=== PATIENT | female | born 1945 | race Caucasian/White ===

== ENCOUNTER 2018-08-16 08:04 | Day surgery (SDC) | payer MEDICARE, SELFPAY ==
--- NOTE | 2018-08-14 20:55 | W.PIPPEYE ---
History of Present Illness Chief Complaint: Progressive decreased vision, left eye Narrative: The patient is a 72-year-old lady with history of progressive decreased vision in both eyes at distance. She has significant difficulty reading road signs and also has trouble with glare from bright lights. On examination she was noted to have moderate bilateral nuclear and cortical cataracts with corrected visual acuity of 20/50 in each eye. The option of cataract surgery was offered to the patient and she felt she was symptomatic enough that she wished to proceed. FOR[facility]LY [facility] Medical History Cortical cataract of left eye (Acute) Nuclear sclerotic cataract of left eye (Acute) Meds Home Medications Medication Instructions Recorded Confirmed Type amlodipine 5 mg PO DAILY 08/09/18 08/09/18 History aspirin [Aspir-81] 81 mg PO DAILY 08/09/18 08/09/18 History atorvastatin 20 mg PO DAILY 08/09/18 08/09/18 History carvedilol [Coreg] 25 mg PO BID 08/09/18 08/09/18 History cholecalciferol (vitamin D3) 1,000 unit PO DAILY 08/09/18 08/09/18 History [Vitamin D3] levothyroxine 125 mcg PO DAILY 08/09/18 08/09/18 History vit C-vit S-ujhyye-ogpy-lutein 2 tab PO DAILY 08/09/18 08/09/18 History [PreserVision Lutein] Allergies Allergy/AdvReac Type Severity Reaction Status Date / Time shellfish derived Allergy Verified 08/13/18 14:45 ivp dye Allergy Uncoded 08/13/18 14:45 Exam OCULAR EXAM:: Visual acuity at distance: Corrected 20/50 right eye, 20/50 left eye Pupils: Pupils equal, round, and reactive without afferent pupillary defect IOP: 16 OD, 14 OS Extraocular Motility: Normal Pertinent Slit Lamp Findings: Significant for pupils dilating to 5 mm OU. 2+ nuclear with 2+ cortical cataract in both eyes. Dilated Funduscopic Examination: Disc cupping is 0.3 OU with good color. The optic nerves have good perfusion and normal color. The retinal vasculature is normal without significant tortuosity or abnormality. The maculas are normal in appearance with normal contour and foveal reflex appropriate for age. The peripheral retina and vitreous are normal. BRIGHTNESS ACUITY TESTING (BAT):: Off left eye 20/50 Low: 20/40 Medium: 20/40 High: 20/40 Assessment and Plan (1) Nuclear sclerotic cataract of left eye: Current visit: No Status: Acute Assessment: Visually significant cataract, left eye. Plan: Cataract extraction with intraocular lens implantation, left eye (2) Cortical cataract of left eye: Current visit: No Status: Acute Assessment: Visually significant cataract, left eye. Plan: Cataract extraction with intraocular lens implantation, left eye Note: NOTE:: The details of the planned surgery, including the risks, indications,limitations,expectations,outcome and possible complications were explained to the patient. The patient understands the complications including, but not limited to: infection, hemorrhage, posterior dislocation of the lens or nuclear fragments which may require the intervention of a vitreoretinal surgeon, possible loss of the eye, or from anesthetic complications. The patient has been made aware of the option of not having surgery, that vision following surgery may not be equal to that prior to surgery, and that the planned surgery may not achieve the intended results. Following this discussion, which the patient appeared to understand, the patient wishes to proceed with cataract surgery with lens implantation of the affected eye to improve and maximize vision.
--- NOTE | 2018-08-15 12:41 | POEE_ITS ---
History of Present Illness Chief Complaint: Progressive decreased vision, left eye Narrative: The patient is a 72-year-old lady with history of macular degeneration in both eyes, left eye worse than right who presented with complaints of progressive decreased vision in both eyes. On examination she was noted to have moderate bilateral nuclear cataracts with cortical cataract of the left eye as well. She has macular changes consistent with macular degeneration. The option of cataract surgery was offered to the patient, and she wished to proceed. She was made aware that postoperative visual acuity will likely be limited by the presence of her pre-existing macular degeneration. NOTE: The Chief Complaint, HPI, Past Medical History, Past Surgical History, Family History, Social History, Medications, and complete Ophthalmic Exam with detailed Assessment and Plan have already been documented in the patient's outpatient ophthalmic record and are not covered again in detail here. PFSH Medical History Cortical cataract of left eye (Acute) Nuclear sclerotic cataract of left eye (Acute) Intermediate stage nonexudative age-related macular degeneration of left eye ( Chronic) Meds Home Medications Medication Instructions Recorded Confirmed Type amlodipine 5 mg PO DAILY 08/09/18 08/09/18 History aspirin [Aspir-81] 81 mg PO DAILY 08/09/18 08/09/18 History atorvastatin 20 mg PO DAILY 08/09/18 08/09/18 History carvedilol [Coreg] 25 mg PO BID 08/09/18 08/09/18 History cholecalciferol (vitamin D3) 1,000 unit PO DAILY 08/09/18 08/09/18 History [Vitamin D3] levothyroxine 125 mcg PO DAILY 08/09/18 08/09/18 History vit C-vit M-fzxpda-lmqu-lutein 2 tab PO DAILY 08/09/18 08/09/18 History [PreserVision Lutein] Allergies Allergy/AdvReac Type Severity Reaction Status Date / Time shellfish derived Allergy Verified 08/13/18 14:45 ivp dye Allergy Uncoded 08/13/18 14:45 Exam OCULAR EXAM:: Visual acuity at distance: Corrected to 20/25 OD, 20/100 OS Pupils: Pupils equal, round, and reactive without afferent pupillary defect IOP: 14 OD 13 OS Extraocular Motility: Normal Pertinent Slit Lamp Findings: Significant for pupils dilating to 7 mm OU. 1+ nuclear cataract OD. 2+ nuclear with 2+ cortical cataract OS. Dilated Funduscopic Examination: Disc cupping is 0.3 OU with normal vessels. There are soft drusen in both macula is with pigmentary changes. There is patchy atrophy in the left macula. Peripheral retina and vitreous is normal. BRIGHTNESS ACUITY TESTING (BAT):: Off left eye 20/100 Low: 20/200 Medium: 20/200 High: 20/400 Assessment and Plan (1) Cortical cataract of left eye: Current visit: No Status: Acute Assessment: Visually significant cataract, left eye. Plan: Cataract extraction with intraocular lens implantation, left eye (2) Nuclear sclerotic cataract of left eye: Current visit: No Status: Acute Assessment: Visually significant cataract, left eye. 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 Plan: A discussion was undertaken with the patient to inform her that her postoperative visual acuity will likely be limited by the presence of her pre- existing macular degeneration. Currently, no intervention is indicated or available for her macular degeneration. Note: NOTE:: The details of the planned surgery, including the risks, indications, limitations,expectations,outcome and possible complications were explained to the patient. The patient understands the complications including, but not limited to: infection, hemorrhage, posterior dislocation of the lens or nuclear fragments which may require the intervention of a vitreoretinal surgeon, possible loss of the eye, or from anesthetic complications. The patient has been made aware of the option of not having surgery, that vision following surgery may not be equal to that prior to surgery, and that the planned surgery may not achieve the intended results. Following this discussion, which the patient appeared to understand, the patient wishes to proceed with cataract surgery with lens implantation of the affected eye to improve and maximize vision.
[2018-08-16 08:27] VITALS: BP 157/92; PULSE 79; RESP 16; TEMP 36.4; O2SAT 99
[2018-08-16] MEDS: Lidocaine 2% Jelly 6 ML SYR (09:45)
[2018-08-16] MEDS: Balanced Salt Soln.-PLUS 500 ML BAG (09:48)
[2018-08-16] MEDS: Povidone-Iodine Ophth 30 ML BTL (09:48)
--- NOTE | 2018-08-16 10:09 | PDOC.DSDIS_ITS ---
Discharge Plan Discharge Details Reason For Visit: CATARACT OS Attending Provider: Christian Orosco Primary Care Provider: Giovanni Quinn [place] Meds and New Rx's Prescriptions: No Action carvedilol [Coreg] 25 mg Tablet 25 mg PO BID RF: 0 atorvastatin 20 mg Tablet 20 mg PO DAILY RF: 0 amlodipine 5 mg Tablet 5 mg PO DAILY RF: 0 aspirin [Aspir-81] 81 mg Tablet,Delayed Release (Dr/Ec) 81 mg PO DAILY RF: 0 cholecalciferol (vitamin D3) [Vitamin D3] 1,000 unit Capsule 1,000 unit PO DAILY RF: 0 vit C-vit U-xjubht-uxym-lutein [PreserVision Lutein] 226 mg-200 unit -5 mg- 0.8 mg Capsule 2 tab PO DAILY RF: 0 levothyroxine 125 mcg Capsule 125 mcg PO DAILY RF: 0 Discharge Instructions Stand Alone Forms: Post-op Topical Cataract, Aki Mendez (DSU) DS: Diagnosis Discharge Diagnosis (1) Cortical cataract of left eye: Status: Resolved (2) Nuclear sclerotic cataract of left eye: Status: Resolved (3) Intermediate stage nonexudative age-related macular degeneration of left eye : Status: Chronic
--- NOTE | 2018-08-16 10:09 | W.PM.OP ---
Date of service: 08/16/18 Time of Service: 10:09 Operative Note PRE-OP DIAGNOSIS: Cataract, left eye POST-OP DIAGNOSIS: same PROCEDURE: Cataract extraction using phacoemulsification with intraocular lens implant, left eye SURGEON: Christian Orosco ANESTHESIA: MAC and local (sub-tenon's anesthetic infiltration) PATHOLOGY: none sent COMPLICATIONS: None Patient was transported to: same day Patient's condition: stable Implants: Ganesh and Ganesh Vision / [employer] Tecnis ZCB00 Indications: Progressive decreased vision due to cataract, left eye Procedure Description: CATARACT SURGERY OPERATIVE REPORT PREOPERATIVE DIAGNOSIS: Nuclear/cortical cataract, left eye, symptomatic POSTOPERATIVE DIAGNOSIS: Same OPERATION: Cataract extraction using phacoemulsification with posterior chamber intraocular lens implant, left eye. IOL: IOL Box Office Attendant/Model: J[employer]J Vision / EDEN Tecnis ZCB00 IOL Power: + 18.50 diopters IOL Serial Number: [id number] Optic Diameter: 6.0mm Haptic/Overall Diameter: 13.0mm PHACO INFO: [employer] Vision System with OZil and Active Fluidics Cumulative Dispersed Energy (CDE): 8.1 seconds SURGEON: Christian Orosco MD, AMOS ANESTHESIA: Monitored Anesthesia Care (MAC), with local sub-tenon's anesthetic infiltration COMPLICATIONS: None SPECIMENS: None INDICATIONS FOR PROCEDURE: The patient is a 72-year-old lady with history of atrophic ARMD of the left eye. She has developed nuclear and cortical cataract. The option of cataract surgery was offered to the patient in order to maximize her level of visual acuity. She understands that postoperative visual acuity will be limited by the presence of her pre-existing maculopathy. PROCEDURE: The correct surgical eye was identified and marked as the left eye and the pupil was dilated in the preoperative area using mydriatics, cycloplegics, and NSAIDS (except in aspirin allergic patients). The dilated pupil size was 8.0 mm. Oral sedation was administered in the form of an Imprimis MKO Melt (midazolam 3mg/ketamine 25mg/ondansetron 2mg). The patient was brought to the operating room where cardiopulmonary monitoring was instituted and surgical time-out was performed, confirming the correct operative eye and IOL power. Topical anesthesia was administered and ophthalmic povidone-iodine 5% was instilled into the conjunctival fornices. Lidocaine gel was applied to the cornea and the rosangela-ocular area was prepped with Betadine 10% solution and draped in the usual sterile fashion for intraocular surgery. Steri-strips were used to cover the lashes and lid margins and an adhesive eye drape was placed. Care was taken to isolate the lashes and lid margins under the Steri-strips and adhesive eye drape. A lid speculum was placed between the lids of the operative eye and the Jackie-Los operating microscope was maneuvered into position. Dc scissors were then used to make a conjunctival buttonhole approximately 6mm posterior to the limbus in the inferonasal quadrant. Blunt dissection was carried out to expose bare sclera, and a blunt-tipped sub-tenon?s anesthesia cannula was introduced and passed posteriorly along the globe where non-preserved plain lidocaine was injected into posterior sub-Tenon?s space. A sideport knife was used to make a paracentesis port at the 12:00 postion and the anterior chamber was filled with Healon GV. A 2.4mm keratome knife was used to create a half-thickness groove at the limbus and then to construct a three-plane near-clear corneal tunnel extending 2.0mm into clear cornea at the 3:00 position. A flap was raised on the anterior capsule and capsulorhexis forceps were used to complete a continuous curvilinear capsulorhexis of 5.5 mm. Balanced salt solution was then used to perform cortical cleaving hydrodissection and nuclear hydrodelineation until the lens could be freely rotated within the capsular bag. The lens nucleus was then disassembled and removed within the capsular bag and iris plane using phacoemulsification. Residual cortical material was removed using the 45-degree angled silicone I/A tip with 0.3mm port. The posterior capsule was carefully polished to remove as much residual lens epithelial cells as safely possible. The capsular bag was then inflated and the anterior chamber deepened with viscoelastic. The lens implant described above was inserted into the capsular bag using the EDEN [place] Injector. A Kuglen hook was used to dial the IOL into position. Residual viscoelastic was then removed first from posterior to the IOL, then from the anterior chamber using the I/A handpiece. The lens implant was noted to center nicely within the capsular bag. The incisions were stromally hydrated, and the anterior chamber was reformed using BSS. Then 0.4cc of moxifloxacin 1.5mg/ml were injected into the capsular bag and anterior chamber. The incisions were checked with a Weck spear and found to be secure. Several drops of ophthalmic povidone-iodine 5% were then applied to the eye followed by two drops of Imprimis combination moxifloxacin/dexamethasone solution. The drapes were removed and a clear plastic protective eye shield was placed over the eye. The patient was then returned to Same Day Surgery in stable condition.
--- NOTE | 2018-08-16 10:12 | ROE_ITS ---
Date of service: 08/16/18 Time of Service: 10:09 Operative Note PRE-OP DIAGNOSIS: Cataract, left eye POST-OP DIAGNOSIS: same PROCEDURE: Cataract extraction using phacoemulsification with intraocular lens implant, left eye SURGEON: Christian Orosco ANESTHESIA: MAC and local (sub-tenon's anesthetic infiltration) PATHOLOGY: none sent COMPLICATIONS: None Patient was transported to: same day Patient's condition: stable Implants: Ganesh and Ganesh Vision / [employer] Tecnis ZCB00 Indications: Progressive decreased vision due to cataract, left eye Procedure Description: CATARACT SURGERY OPERATIVE REPORT PREOPERATIVE DIAGNOSIS: Nuclear/cortical cataract, left eye, symptomatic POSTOPERATIVE DIAGNOSIS: Same OPERATION: Cataract extraction using phacoemulsification with posterior chamber intraocular lens implant, left eye. IOL: IOL [employer] Forms Developer/Model: J&J Vision / EDEN Tecnis ZCB00 IOL Power: + 18.50 diopters IOL Serial Number: [id number] Optic Diameter: 6.0mm Haptic/Overall Diameter: 13.0mm PHACO INFO: [employer] Vision System with OZil and Active Fluidics Cumulative Dispersed Energy (CDE): 8.1 seconds SURGEON: Christian Orosco MD, AMOS ANESTHESIA: Monitored Anesthesia Care (MAC), with local sub-tenon's anesthetic infiltration COMPLICATIONS: None SPECIMENS: None INDICATIONS FOR PROCEDURE: The patient is a 72-year-old lady with history of atrophic ARMD of the left eye. She has developed nuclear and cortical cataract. The option of cataract surgery was offered to the patient in order to maximize her level of visual acuity. She understands that postoperative visual acuity will be limited by the presence of her pre-existing maculopathy. PROCEDURE: The correct surgical eye was identified and marked as the left eye and the pupil was dilated in the preoperative area using mydriatics, cycloplegics, and NSAIDS (except in aspirin allergic patients). The dilated pupil size was 8.0 mm. Oral sedation was administered in the form of an Imprimis MKO Melt (midazolam 3mg/ketamine 25mg/ondansetron 2mg). The patient was brought to the operating room where cardiopulmonary monitoring was instituted and surgical time-out was performed, confirming the correct operative eye and IOL power. Topical anesthesia was administered and ophthalmic povidone-iodine 5% was instilled into the conjunctival fornices. Lidocaine gel was applied to the cornea and the rosangela-ocular area was prepped with Betadine 10% solution and draped in the usual sterile fashion for intraocular surgery. Steri-strips were used to cover the lashes and lid margins and an adhesive eye drape was placed. Care was taken to isolate the lashes and lid margins under the Steri-strips and adhesive eye drape. A lid speculum was placed between the lids of the operative eye and the Jackie-Los operating microscope was maneuvered into position. Dc scissors were then used to make a conjunctival buttonhole approximately 6mm posterior to the limbus in the inferonasal quadrant. Blunt dissection was carried out to expose bare sclera, and a blunt-tipped sub-tenon? s anesthesia cannula was introduced and passed posteriorly along the globe where non-preserved plain lidocaine was injected into posterior sub-Tenon?s space. A sideport knife was used to make a paracentesis port at the 12:00 postion and the anterior chamber was filled with Healon GV. A 2.4mm keratome knife was used to create a half-thickness groove at the limbus and then to construct a three-plane near-clear corneal tunnel extending 2.0mm into clear cornea at the 3:00 position. A flap was raised on the anterior capsule and capsulorhexis forceps were used to complete a continuous curvilinear capsulorhexis of 5.5 mm. Balanced salt solution was then used to perform cortical cleaving hydrodissection and nuclear hydrodelineation until the lens could be freely rotated within the capsular bag. The lens nucleus was then disassembled and removed within the capsular bag and iris plane using phacoemulsification. Residual cortical material was removed using the 45-degree angled silicone I/A tip with 0.3mm port. The posterior capsule was carefully polished to remove as much residual lens epithelial cells as safely possible. The capsular bag was then inflated and the anterior chamber deepened with viscoelastic. The lens implant described above was inserted into the capsular bag using the EDEN [place] Injector. A Kuglen hook was used to dial the IOL into position. Residual viscoelastic was then removed first from posterior to the IOL, then from the anterior chamber using the I/A handpiece. The lens implant was noted to center nicely within the capsular bag. The incisions were stromally hydrated , and the anterior chamber was reformed using BSS. Then 0.4cc of moxifloxacin 1.5mg/ml were injected into the capsular bag and anterior chamber. The incisions were checked with a Weck spear and found to be secure. Several drops of ophthalmic povidone-iodine 5% were then applied to the eye followed by two drops of Imprimis combination moxifloxacin/dexamethasone solution. The drapes were removed and a clear plastic protective eye shield was placed over the eye. The patient was then returned to Same Day Surgery in stable condition.
[2018-08-16 10:30] VITALS: BP 113/74; PULSE 64; RESP 16; TEMP 36.6; O2SAT 97
== END 2018-08-16 10:45 | disposition home or self-care (01) ==
LOC: SUR 08:06
PROVIDERS: PCP Family Medicine; Visit Provider Ophthalmology
PROC: (CPT 66984; principal; 2018-08-16 10:00)
DX: H25.812 Combined forms of age-related cataract, left eye (principal)
CPT/HCPCS: 66984; V2632

== ENCOUNTER 2018-08-30 08:09 | Day surgery (SDC) | payer MEDICARE, SELFPAY ==
--- NOTE | 2018-08-29 12:15 | POEE_ITS ---
History of Present Illness Chief Complaint: Progressive decreased vision, right eye Narrative: The patient is a 72-year-old female with history of macular degeneration OU, left eye worse than right. She has progressive decreased vision at both distance and near. She was noted to have moderate bilateral nuclear and cortical cataracts, left eye worse than right. She underwent cataract surgery in the left eye on 08/16/2018. Postoperatively, her visual acuity has been limited by the presence of pre-existing maculopathy in the left eye. She now presents for cataract surgery in the right eye NOTE: The Chief Complaint, HPI, Past Medical History, Past Surgical History, Family History, Social History, Medications, and complete Ophthalmic Exam with detailed Assessment and Plan have already been documented in the patient's outpatient ophthalmic record and are not covered again in detail here. [facility] Medical History Nuclear sclerotic cataract of right eye (Acute) Age-related macular degeneration, dry, right eye (Chronic) Intermediate stage nonexudative age-related macular degeneration of left eye ( Chronic) Social History Smoking/Tobacco Use Status: Never Surgical History Status post cataract extraction and insertion of intraocular lens of left eye ( Resolved 08/16/18) Meds Home Medications Medication Instructions Recorded Confirmed Type amlodipine 5 mg PO DAILY 08/09/18 08/09/18 History aspirin [Aspir-81] 81 mg PO DAILY 08/09/18 08/09/18 History atorvastatin 20 mg PO DAILY 08/09/18 08/09/18 History carvedilol [Coreg] 25 mg PO BID 08/09/18 08/09/18 History cholecalciferol (vitamin D3) 1,000 unit PO DAILY 08/09/18 08/09/18 History [Vitamin D3] levothyroxine 125 mcg PO DAILY 08/09/18 08/09/18 History vit C-vit N-siktka-mvvu-lutein 2 tab PO DAILY 08/09/18 08/09/18 History [PreserVision Lutein] Allergies Allergy/AdvReac Type Severity Reaction Status Date / Time shellfish derived Allergy vomiting, Verified 08/16/18 08:24 ivp dye Allergy Uncoded 08/13/18 14:45 Exam OCULAR EXAM:: Visual acuity at distance: Corrected visual acuity is 20/30 OD, 20 /200 OS. Pupils: Pupils equal, round, and reactive without afferent pupillary defect IOP: 14 OD 14 OS Extraocular Motility: Normal Pertinent Slit Lamp Findings: Significant for a 1+ nuclear cataract OD. Well- positioned PCIOL OS with clear posterior capsule. Dilated Funduscopic Examination: Disc cupping is 0.3 OU with good color. There are soft drusen in both macula is with RPE changes. There are areas of patchy atrophy in the left macula. Peripheral retina and vitreous is normal. BRIGHTNESS ACUITY TESTING (BAT):: Off right eye 20/25 Low: 20/30 Medium: 20/30 High: 20/40 Assessment and Plan (1) Nuclear sclerotic cataract of right eye: Current visit: No Status: Acute Assessment: Visually significant cataract, right eye. Plan: Cataract extraction with intraocular lens implantation, right eyeNuclear cataract, right eye (2) Status post cataract extraction and insertion of intraocular lens of left eye: Current visit: No Status: Resolved Note: NOTE:: The details of the planned surgery, including the risks, indications, limitations,expectations,outcome and possible complications were explained to the patient. The patient understands the complications including, but not limited to: infection, hemorrhage, posterior dislocation of the lens or nuclear fragments which may require the intervention of a vitreoretinal surgeon, possible loss of the eye, or from anesthetic complications. The patient has been made aware of the option of not having surgery, that vision following surgery may not be equal to that prior to surgery, and that the planned surgery may not achieve the intended results. Following this discussion, which the patient appeared to understand, the patient wishes to proceed with cataract surgery with lens implantation of the affected eye to improve and maximize vision.
[2018-08-30 08:21] VITALS: BP 155/93; PULSE 70; RESP 16; TEMP 36.8; O2SAT 97
[2018-08-30] MEDS: Lidocaine 1% Pres-Free 5 ML VIAL (09:38)
[2018-08-30] MEDS: Balanced Salt Soln.-PLUS 500 ML BAG (09:41)
[2018-08-30] MEDS: Lidocaine 2% Jelly 6 ML SYR (09:43)
[2018-08-30] MEDS: Povidone-Iodine Ophth 30 ML BTL (09:44)
--- NOTE | 2018-08-30 10:07 | W.PM.DSUDISC ---
Discharge Plan Discharge Details Attending Provider: Christian Orosco Primary Care Provider: Giovanni Quinn [place] Meds and New Rx's Prescriptions: No Action carvedilol [Coreg] 25 mg Tablet 25 mg PO BID RF: 0 atorvastatin 20 mg Tablet 20 mg PO DAILY RF: 0 amlodipine 5 mg Tablet 5 mg PO DAILY RF: 0 aspirin [Aspir-81] 81 mg Tablet,Delayed Release (Dr/Ec) 81 mg PO DAILY RF: 0 cholecalciferol (vitamin D3) [Vitamin D3] 1,000 unit Capsule 1,000 unit PO DAILY RF: 0 vit C-vit Z-kywest-opqi-lutein [PreserVision Lutein] 226 mg-200 unit -5 mg-0.8 mg Capsule 2 tab PO DAILY RF: 0 levothyroxine 125 mcg Capsule 125 mcg PO DAILY RF: 0 Discharge Instructions Stand Alone Forms: Post-op Topical Cataract, Aki Mendez (DSU) DS: Diagnosis Discharge Diagnosis (1) Nuclear sclerotic cataract of right eye: Status: Resolved (2) Status post cataract extraction and insertion of intraocular lens of left eye: Status: Chronic (3) Status post cataract extraction and insertion of intraocular lens of right eye: Status: Acute
--- NOTE | 2018-08-30 10:09 | W.PM.OP ---
Date of service: 08/30/18 Time of Service: 10:09 Operative Note DATE OF PROCEDURE: 08/30/18 PRE-OP DIAGNOSIS: Cataract, right eye POST-OP DIAGNOSIS: same SURGEON: Christian Orosco ANESTHESIA: MAC and local (sub-tenon's anesthetic infiltration) PATHOLOGY: none sent COMPLICATIONS: None Patient was transported to: same day Patient's condition: stable Implants: Ganesh [employer] Ganesh [employer] / [employer] Tecnis ZCB00 Indications: Progressive decreased vision due to cataract, right eye Procedure Description: CATARACT SURGERY OPERATIVE REPORT PREOPERATIVE DIAGNOSIS: Nuclear cataract, right eye POSTOPERATIVE DIAGNOSIS: Same OPERATION: Cataract extraction using phacoemulsification with posterior chamber intraocular lens implant, right eye. IOL: IOL Guide Plant/Model: [employer] Vision / EDEN Tecnis ZCB00 IOL Power: + 18.50 diopters IOL Serial Number: [id number] Optic Diameter: 6.0mm Haptic/Overall Diameter: 13.0mm PHACO INFO: Don [employer] Vision System with OZil and Active Fluidics Cumulative Dispersed Energy (CDE): 8.69 seconds SURGEON: Christian Orosco MD, AMOS ANESTHESIA: Monitored Anesthesia Care (MAC), with local sub-tenon's anesthetic infiltration COMPLICATIONS: None SPECIMENS: None INDICATIONS FOR PROCEDURE: The patient is a 72-year-old lady with history of macular degeneration, left eye worse than right who has developed significant bilateral nuclear cataracts. She is Ardie undergone cataract surgery in her left eye on 08/16/2018. Postoperatively she is doing well, except that her postoperative visual acuity is limited limited by the presence of her pre-existing macular degeneration. She now presents for cataract surgery in the right eye. PROCEDURE: The correct surgical eye was identified and marked as the right eye and the pupil was dilated in the preoperative area using mydriatics, cycloplegics, and NSAIDS (except in aspirin allergic patients). The dilated pupil size was 8.0 mm. Oral sedation was administered in the form of an Imprimis MKO Melt (midazolam 3mg/ketamine 25mg/ondansetron 2mg). The patient was brought to the operating room where cardiopulmonary monitoring was instituted and surgical time-out was performed, confirming the correct operative eye and IOL power. Topical anesthesia was administered and ophthalmic povidone-iodine 5% was instilled into the conjunctival fornices. Lidocaine gel was applied to the cornea and the rosangela-ocular area was prepped with Betadine 10% solution and draped in the usual sterile fashion for intraocular surgery. Steri-strips were used to cover the lashes and lid margins and an adhesive eye drape was placed. Care was taken to isolate the lashes and lid margins under the Steri-strips and adhesive eye drape. A lid speculum was placed between the lids of the operative eye and the Jackie-Los operating microscope was maneuvered into position. Dc scissors were then used to make a conjunctival buttonhole approximately 6mm posterior to the limbus in the inferonasal quadrant. Blunt dissection was carried out to expose bare sclera, and a blunt-tipped sub-tenon?s anesthesia cannula was introduced and passed posteriorly along the globe where non-preserved plain lidocaine was injected into posterior sub-Tenon?s space. A sideport knife was used to make a paracentesis port at the 7:00 postion and the anterior chamber was filled with Healon GV. A 2.4mm keratome knife was used to create a half-thickness groove at the limbus and then to construct a three-plane near-clear corneal tunnel extending 2.0mm into clear cornea at the 10:00 position. A flap was raised on the anterior capsule and capsulorhexis forceps were used to complete a continuous curvilinear capsulorhexis of 5.5 mm. Balanced salt solution was then used to perform cortical cleaving hydrodissection and nuclear hydrodelineation until the lens could be freely rotated within the capsular bag. The lens nucleus was then disassembled and removed within the capsular bag and iris plane using phacoemulsification. Residual cortical material was removed using the 45-degree angled silicone I/A tip with 0.3mm port. The posterior capsule was carefully polished to remove as much residual lens epithelial cells as safely possible. The capsular bag was then inflated and the anterior chamber deepened with viscoelastic. The lens implant described above was inserted into the capsular bag using the EDEN [place] Injector. A Kuglen hook was used to dial the IOL into position. Residual viscoelastic was then removed first from posterior to the IOL, then from the anterior chamber using the I/A handpiece. The lens implant was noted to center nicely within the capsular bag. The incisions were stromally hydrated, and the anterior chamber was reformed using BSS. Then 0.4cc of moxifloxacin 1.5mg/ml were injected into the capsular bag and anterior chamber. The incisions were checked with a Weck spear and found to be secure. Several drops of ophthalmic povidone-iodine 5% were then applied to the eye followed by two drops of Imprimis combination moxifloxacin/dexamethasone solution. The drapes were removed and a clear plastic protective eye shield was placed over the eye. The patient was then returned to [facility] Day Surgery in stable condition.
--- NOTE | 2018-08-30 10:12 | ROE_ITS ---
Date of service: 08/30/18 Time of Service: 10:09 Operative Note DATE OF PROCEDURE: 08/30/18 PRE-OP DIAGNOSIS: Cataract, right eye POST-OP DIAGNOSIS: same SURGEON: Christian Orosco ANESTHESIA: MAC and local (sub-tenon's anesthetic infiltration) PATHOLOGY: none sent COMPLICATIONS: None Patient was transported to: same day Patient's condition: stable Implants: Ganesh and Ganes[employer] Vision / [employer] Tecnis ZCB00 Indications: Progressive decreased vision due to cataract, right eye Procedure Description: CATARACT SURGERY OPERATIVE REPORT PREOPERATIVE DIAGNOSIS: Nuclear cataract, right eye POSTOPERATIVE DIAGNOSIS: Same OPERATION: Cataract extraction using phacoemulsification with posterior chamber intraocular lens implant, right eye. IOL: IOL Cost Accountant/Model: [employer] Vision / [employer]EN [employer]ecnis ZCB00 IOL Power: + 18.50 diopters IOL Serial Number: [id number] Optic Diameter: 6.0mm Haptic/Overall Diameter: 13.0mm PHACO INFO: Don [employer] Vision System with OZil and Active Fluidics Cumulative Dispersed Energy (CDE): 8.69 seconds SURGEON: Christian Orosco MD, AMOS ANESTHESIA: Monitored Anesthesia Care (MAC), with local sub-tenon's anesthetic infiltration COMPLICATIONS: None SPECIMENS: None INDICATIONS FOR PROCEDURE: The patient is a 72-year-old lady with history of macular degeneration, left eye worse than right who has developed significant bilateral nuclear cataracts. She is Ardie undergone cataract surgery in her left eye on 08/16/2018. Postoperatively she is doing well, except that her postoperative visual acuity is limited limited by the presence of her pre-existing macular degeneration. She now presents for cataract surgery in the right eye. PROCEDURE: The correct surgical eye was identified and marked as the right eye and the pupil was dilated in the preoperative area using mydriatics, cycloplegics, and NSAIDS (except in aspirin allergic patients). The dilated pupil size was 8.0 mm. Oral sedation was administered in the form of an Imprimis MKO Melt (midazolam 3mg/ketamine 25mg/ondansetron 2mg). The patient was brought to the operating room where cardiopulmonary monitoring was instituted and surgical time-out was performed, confirming the correct operative eye and IOL power. Topical anesthesia was administered and ophthalmic povidone-iodine 5% was instilled into the conjunctival fornices. Lidocaine gel was applied to the cornea and the rosangela-ocular area was prepped with Betadine 10% solution and draped in the usual sterile fashion for intraocular surgery. Steri-strips were used to cover the lashes and lid margins and an adhesive eye drape was placed. Care was taken to isolate the lashes and lid margins under the Steri-strips and adhesive eye drape. A lid speculum was placed between the lids of the operative eye and the Jackie-Los operating microscope was maneuvered into position. Dc scissors were then used to make a conjunctival buttonhole approximately 6mm posterior to the limbus in the inferonasal quadrant. Blunt dissection was carried out to expose bare sclera, and a blunt-tipped sub-tenon? s anesthesia cannula was introduced and passed posteriorly along the globe where non-preserved plain lidocaine was injected into posterior sub-Tenon?s space. A sideport knife was used to make a paracentesis port at the 7:00 postion and the anterior chamber was filled with Healon GV. A 2.4mm keratome knife was used to create a half-thickness groove at the limbus and then to construct a three-plane near-clear corneal tunnel extending 2.0mm into clear cornea at the 10:00 position. A flap was raised on the anterior capsule and capsulorhexis forceps were used to complete a continuous curvilinear capsulorhexis of 5.5 mm. Balanced salt solution was then used to perform cortical cleaving hydrodissection and nuclear hydrodelineation until the lens could be freely rotated within the capsular bag. The lens nucleus was then disassembled and removed within the capsular bag and iris plane using phacoemulsification. Residual cortical material was removed using the 45-degree angled silicone I/A tip with 0.3mm port. The posterior capsule was carefully polished to remove as much residual lens epithelial cells as safely possible. The capsular bag was then inflated and the anterior chamber deepened with viscoelastic. The lens implant described above was inserted into the capsular bag using the EDEN [place] Injector. A Kuglen hook was used to dial the IOL into position. Residual viscoelastic was then removed first from posterior to the IOL, then from the anterior chamber using the I/A handpiece. The lens implant was noted to center nicely within the capsular bag. The incisions were stromally hydrated , and the anterior chamber was reformed using BSS. Then 0.4cc of moxifloxacin 1.5mg/ml were injected into the capsular bag and anterior chamber. The incisions were checked with a Weck spear and found to be secure. Several drops of ophthalmic povidone-iodine 5% were then applied to the eye followed by two drops of Imprimis combination moxifloxacin/dexamethasone solution. The drapes were removed and a clear plastic protective eye shield was placed over the eye. The patient was then returned to Same Day Surgery in stable condition.
[2018-08-30 10:40] VITALS: BP 130/76; PULSE 80; RESP 16; TEMP 36.6; O2SAT 95
== END 2018-08-30 10:45 | disposition home or self-care (01) ==
LOC: SUR 08:10
PROVIDERS: PCP Family Medicine; Visit Provider Ophthalmology
PROC: (CPT 66984; principal; 2018-08-30 10:00)
DX: H25.11 Age-related nuclear cataract, right eye (principal); Z98.42 Cataract extraction status, left eye; Z96.1 Presence of intraocular lens; I10 Essential (primary) hypertension
CPT/HCPCS: 66984; V2632